=== PATIENT | male | born 1985 | race Caucasian/White ===

== ENCOUNTER 2017-06-09 13:58 | Emergency (ER) | payer OTHER ==
[2017-06-09 14:11] VITALS: BP 122/79; PULSE 98; RESP 18; TEMP 98.3
--- NOTE | 2017-06-09 14:28 | ED ---
ENT HPI - General Chief complaint: ENT Stated complaint: Ear Pain Time Seen by Provider: 06/09/17 14:15 Source: patient, RN notes reviewed Mode of arrival: ambulatory Limitations: no limitations - History of Present Illness Initial comments: 32-year-old male presents to the emergency department with a chief complaint of ear pain. Patient states that he has had pain for the past few days after swimming. Patient states he has some drainage from the right. Patient states he hasn't been any fever chills cough cold. Patient denies any nausea or vomiting. Patient states he concerned due to his ear discomfort so he thought that he should be evaluated. Patient states it is not currently having any other symptoms at this time.Patient denies any recent fever, chills, shortness of breath, chest pain, back pain, abdominal pain, nausea vomiting, numbness or tingling, dysuria or hematuria, constipation or diarrhea, headaches or visual changes, or any other current symptoms. - Related Data Home Medications Medication Instructions Recorded Confirmed HYDROcodone/APAP 10-325MG [[place] 1 tab PO DAILY 04/05/16 04/05/16 10-325] Omeprazole [PriLOSEC] 20 mg PO DAILY 04/05/16 04/05/16 Previous Rx's Medication Instructions Recorded Amoxicillin 500 mg PO Q8H #21 capsule 06/09/17 Ofloxacin 0.3% Ophth Soln [Ocuflox 10 drops RIGHT EAR BID 7 Days 06/09/17 Ophth Soln] Allergies Allergy/AdvReac Type Severity Reaction Status Date / Time No Known Allergies Allergy Verified 04/05/16 18:38 Review of Systems ROS Statement: Those systems with pertinent positive or pertinent negative responses have been documented in the HPI. ROS Other: All systems not noted in ROS Statement are negative. Past Medical History Past Medical History: Asthma, GERD/Reflux History of Any Multi-Drug Resistant Organisms: None Reported Past Surgical History: No Surgical Hx Reported Past Psychological History: Anxiety Smoking Status: Never smoker Past Alcohol Use History: Abuse, Heavy Past Drug Use History: Cocaine, Marijuana General Exam - General Exam Comments Initial Comments: General exam: Alert, active, comfortable in no apparent distress Head: Normocephalic Eyes: Normal reaction of pupils, equal size, normal range of extraocular motion Ears: \pink tympanic membranes with normal cone of light, patient does appear to have erythema and pain to the right tympanic membrane pain with movement of the tragus. Nose: clear with pink turbinates Throat: no erythema or exudates with normal sized tonsils Neck: no masses, no nuchal rigidity Chest: no chest wall deformity Lungs: equal air entry with no crackles or wheeze CVS: S1 and S2 normal with no audible mumurs, regular rhythm Spine: no scoliosis or deformity Skin: no rashes Neurological: No focal deficits, tone is normal in all 4 extremities Limitations: no limitations Course Vital Signs 06/09/17 14:06 Temperature 98.3 F Pulse Rate 98 Respiratory 18 Rate Blood Pressure 122/79 O2 Sat by Pulse 96 Oximetry Medical Decision Making - Medical Decision Making 32-year-old male presents with what appears to be a right otitis externa. This was a patient and eyedrops. We did discuss care follow-up return parameters all questions. Patient stated that he understood he is given plan. This time will be discharged home. Pulses is not completed. - Radiology Data Radiology results: report reviewed, image reviewed Disposition Clinical Impression: Right otitis media Disposition: HOME SELF-CARE Condition: Stable Instructions: Otitis Media in Children (ED) Additional Instructions: Please use medication as discussed. Please follow up with family doctor if symptoms have not improved over the next two days. Please return to the emergency room if your symptoms increase or worsen or for any other concerns. Prescriptions: Amoxicillin 500 mg PO Q8H #21 capsule Ofloxacin 0.3% Ophth Soln [Ocuflox Ophth Soln] 10 drops RIGHT EAR BID 7 Days Referrals: Gomez Rich MD [Primary Care Provider] - 1-2 days Time of Disposition: 14:27
== END 2017-06-09 14:34 | disposition home or self-care (01) ==
LOC: EC 13:58
DX: H66.91 Otitis media, unspecified, right ear (principal); K21.9 Gastro-esophageal reflux disease without esophagitis; Z79.891 Long term (current) use of opiate analgesic; Z79.899 Other long term (current) drug therapy
CPT/HCPCS: 99282

== ENCOUNTER → 2018-06-25 | Outpatient (CLI) | payer OTHER | END | disposition home or self-care (01) | LOC: RADECHMAIN 12:22 | PROVIDERS: ATTEND Internal Medicine | DX: Z53.9 Procedure and treatment not carried out, unspecified reason (principal) ==

== ENCOUNTER 2022-05-14 21:27 | Emergency (ER) | payer OTHER ==
[2022-05-14 22:20] VITALS: BP 130/62; PULSE 82; RESP 16
[2022-05-14] MEDS ORDERED: LIDOCAINE 1% INJ 10MG/ML (5 ML VIAL-PF) SQ ONE (22:23)
[2022-05-14] MEDS ORDERED: BACITRACIN OINT 1 EACH PACKET TOPICAL ONE (22:23)
--- NOTE | 2022-05-14 23:41 | ED ---
General Adult HPI - General Chief complaint: Wound/Laceration Stated complaint: R Arm Laceration Time Seen by Provider: 05/14/22 22:23 Source: patient, RN notes reviewed Mode of arrival: ambulatory Limitations: no limitations - History of Present Illness Initial comments: 37-year-old male presents to the emergency department for evaluation of laceration to the right forearm. Patient states injury occurred while at work approximately 45 minutes prior to arrival. Patient states he bumped an overhead light fixture causing it to swing down striking his arm. Bleeding was controlled prior to arrival with direct pressure. Tetanus shot is up-to-date. Denies any loss of sensation or range of motion. No other injuries or concerns at this time. - Related Data Home Medications Medication Instructions Recorded Confirmed HYDROcodone/APAP 10-325MG [[place] 1 tab PO DAILY 04/05/16 04/05/16 10-325] Omeprazole [PriLOSEC] 20 mg PO DAILY 04/05/16 04/05/16 Previous Rx's Medication Instructions Recorded Amoxicillin 500 mg PO Q8H #21 capsule 06/09/17 Ofloxacin 0.3% Ophth Soln [Ocuflox 10 drops RIGHT EAR BID 7 Days ml 06/09/17 Ophth Soln] Allergies Allergy/AdvReac Type Severity Reaction Status Date / Time No Known Allergies Allergy Verified 05/14/22 22:20 Review of Systems ROS Statement: Those systems with pertinent positive or pertinent negative responses have been documented in the HPI. ROS Other: All systems not noted in ROS Statement are negative. Past Medical History Past Medical History: Asthma, GERD/Reflux History of Any Multi-Drug Resistant Organisms: None Reported Past Surgical History: No Surgical Hx Reported Past Psychological History: Anxiety Past Alcohol Use History: Abuse, Heavy Past Drug Use History: Cocaine, Marijuana General Exam Limitations: no limitations (Well-developed, well-nourished male in no acute distress. Initial pulse 82, respirations 16, blood pressure 130/62, pulse ox 98% on room air.) General appearance: alert, in no apparent distress Eye exam: Present: normal appearance. Absent: scleral icterus, conjunctival injection, periorbital swelling, periorbital tenderness Respiratory exam: Present: normal lung sounds bilaterally. Absent: respiratory distress, wheezes, rales, rhonchi, stridor Cardiovascular Exam: Present: regular rate, normal rhythm, normal heart sounds. Absent: systolic murmur, diastolic murmur, rubs, gallop, clicks GI/Abdominal exam: Present: soft, normal bowel sounds. Absent: distended, tenderness, guarding, rebound, rigid Right Upper Arm exam: Present: normal inspection, full ROM. Absent: tenderness, swelling Elbow exam: Present: normal inspection, full ROM. Absent: tenderness, swelling Forearm Wrist exam: Present: full ROM, laceration (3 cm linear laceration to the anterior midportion of the right forearm.). Absent: tenderness, swelling, pain with axial thumb loading Hand Wrist exam: Present: normal inspection, full ROM. Absent: tenderness, swe lling Neuro motor exam: Present: wrist extension intact, thumb opposition intact, thumb IP flexion intact, thumb adduction intact, fingers 2-5 abduction intact Neurosensory exam: Present: other (Distal sensation intact) Vascular: Present: normal capillary refill, radial pulse, brachial pulse, ulnar pulse. Absent: vascular compromise, Pallo Neurological exam: Present: alert, oriented X3, CN II-XII intact Psychiatric exam: Present: normal affect, normal mood Skin exam: Present: warm, dry, normal color Course Vital Signs 05/14/22 22:17 Pulse Rate 82 Respiratory 16 Rate Blood Pressure 130/62 O2 Sat by Pulse 98 Oximetry Procedures - Laceration Laceration #1 Consent Obtained: verbal consent Indication: laceration Site: upper extremity (Right) Size (cm): 3 Description: linear, clean Depth: simple, single layer Sedation/Analgesia: none Anesthetic Used: lidocaine 1% Anesthesia Technique: local infiltration Amount (mls): 2 Pre-repair: wound explored, irrigated extensively Type of Sutures: nylon Size of Sutures: 4-0 Number of Sutures: 7 Technique: simple, interrupted Patient Tolerated Procedure: well, no complications Additional Comments: Wound was cleansed, anesthetized, and thoroughly irrigated. 7 simple interrupted sutures were placed with good approximation. Bacitracin dressing applied. Wound care was reviewed at length with the patient. Instructed to have sutures removed in 7-10 days. Patient verbalizes understanding. Medical Decision Making - Medical Decision Making This is a 37-year-old male with no significant past medical history who presents to the emergency department for evaluation of laceration to the right forearm. Upon exam, patient is well-appearing and in no acute distress. Distal sensation is intact. No decreased range of motion. Bleeding was controlled prior to arrival. Declines imaging. TDaP up to date. 7 simple interrupted sutures were placed with good alignment. Wound care was reviewed at length. Patient is instructed to have sutures removed in 7-10 days. Encouraged to follow up with h is PCP in 48-72 hours for wound recheck. Return parameters discussed in detail. Patient and significant other verbalized understanding and agreed with this plan. Attending: Jordan. Disposition Clinical Impression: Laceration of right upper arm Disposition: HOME SELF-CARE Condition: Stable Instructions (If sedation given, give patient instructions): Care For Your Stitches (ED), Laceration (ED) Additional Instructions: Gently cleanse wound with mild soap and water twice daily. Apply bacitracin to wound and cover with gauze or bandaid. Keep wound covered anytime you leave the house. Monitor carefully for signs of infection including increased pain, redness, or foul smelling drainage. Follow-up with your PCP for wound recheck in 3 days. Sutures to be removed in 7-10 days. Return to the emergency department with any new, worsening, or concerning symptoms. Is patient prescribed a controlled substance at d/c from ED?: No Referrals: Adolph Ruano MD [Primary Care Provider] - 1-2 days Time of Disposition: 23:40
== END 2022-05-14 23:49 | disposition home or self-care (01) ==
LOC: EC 21:27
DX: S51.811A Laceration without foreign body of right forearm, initial encounter (principal); K21.9 Gastro-esophageal reflux disease without esophagitis; J45.909 Unspecified asthma, uncomplicated; F12.90 Cannabis use, unspecified, uncomplicated; F14.90 Cocaine use, unspecified, uncomplicated; Z79.899 Other long term (current) drug therapy; W26.8XXA Contact with other sharp object(s), not elsewhere classified, initial encounter; Y99.0 Civilian activity done for income or pay
CPT/HCPCS: 12002; 99282; J2001